=== PATIENT | female | born 1955 | race Caucasian/White ===

== ENCOUNTER 2016-03-31 10:30 | Outpatient (RCR) | payer BC ==
--- NOTE | 2016-03-19 15:20 | PT/OT/ST INITIAL EVALUATION ---
[facility], [facility]. PHYSICAL/OCCUPATIONAL THERAPY [address] [place], [place] [id number] PLAN OF CARE/ASSESSMENT FOR OUTPATIENT REHABILITATION (Complete for Initial Claims Only) 1. PATIENT'S NAME Racheal Gonzalez 2. ACC. No [id number] 3. REFERRING PHYSICIAN Dr. Jarvis Boateng 4. PRIMARY DX Right total knee arthroplasty 5. SECONDARY DX 6. ONSET DATE 03/10/2016 7. REFERRAL DATE 03/12/2016 8. SOC. DATE/TIME 03/15/2016 16:10 9. PRIOR LEVEL OF FUNCTION; PERTINENT HISTORY (Prior therapy results, reason for referral.) S: Prior to today's treatment, the patient did consent to therapy evaluation and treatment. The patient is a 60-year-old female with a history of chronic knee pain bilaterally. The patient did undergo right total knee arthroplasty on the 03/10/2016. The patient did have a several day hospital stay, in which she had physical therapy services, but now has returned home. Currently the patient has limited range of motion, postoperative pain in the right knee, as well as impaired gait and strength. Prior function: The patient is a retired trauma meat department manager. She does live in a house with 3 entry stairs, but does have to ascend and descend 15 steps to get to her bedroom. The patient was ambulating with the use of a cane prior to her surgery secondary to chronic knee pain issues bilaterally. Current function: The patient is currently ambulating with the use of a front-wheeled walker. She has made arrangements to sleep downstairs so she does not have to traverse her stairs at this time. Current pain level is 6/10 in the right knee and it is managed with taking [place]. The patient also has left knee pain related to meniscus issues, as well as joint deterioration and she rates the pain in the left knee as 3/10. Past medical history: Includes prior knee scope on the right knee as well as the left, carpal tunnel syndrome, lymph node removal in the neck. Past medical history also includes arthritis, diabetes, depression and high blood pressure. Medication list: [place] for pain, as well as Tylenol. The patient's goal for physical therapy is to be able to return to ambulating without an assistive device. 10. INITIAL ASSESSMENT/SAFETY PRECAUTIONS/MEDICAL COMPLICATIONS (Level of function at start of care. Be specific, use objective measures, list problems.) O: APPEARANCE AND OBSERVATION: Observation of the patient's right knee reveals mild postoperative swelling, no significant heat, redness, or edema noted around the knee joint or distal lower extremity. Observation of the patient's gait reveals the patient is able to complete step-through gait pattern with the use of her front-wheeled walker with good heel strike, but limited push off. RANGE OF MOTION/FLEXIBILITY: Left knee flexion actively in sitting is 127 degrees, right is 88 degrees. Left ankle dorsiflexion measured in supine is 10 degrees; right is lacking 12 degrees from neutral. Left knee extension is lacking 2 degrees from neutral. Flexion is 131 degrees. Right knee extension is lacking 15 degrees; left knee flexion is 88 degrees. STRENGTH: Right hip flexion 3/5, knee flexion 3+/5, knee extension 2/5, ankle dorsiflexion 5/5. Left hip flexion 5/5, knee flexion 5/5, extension 4+/5, ankle dorsiflexion 4/5. SPECIAL TESTS: The patient scored an 87.5% disability on the lower extremity functional index. TODAY'S TREATMENT: Today's treatment consisted of continuing her range of motion and strengthening exercises per total knee arthroplasty protocol. A vasopneumatic device was applied to the right knee following treatment to address pain and inflammation. The patient was instructed to continue these exercises at home to allow her to continue to improve her range of motion and strength. 11. INITIAL POC: (Specify procedures, modalities, short and terminologist goals) A: The patient presents to physical therapy 5 days postoperative right total knee arthroplasty. PROGNOSIS: This patient does have an excellent prognosis with regular therapy attendance and compliance with her home exercise program. The patient is expected to benefit from physical therapy services in order to improve right knee range of motion, strength, and allow her to return to ambulating without an assistive device. SHORT TERM GOALS: 1. The patient will demonstrate independence and report compliance with her home exercise program related to range of motion and strengthening exercises. 2. The patient will improve right knee flexion to be 100 degrees, extension to be lacking 5 degrees within 2 weeks' time. 3. The patient will have a minimum of 4/5 knee flexion and extension strength within 3 weeks. [facility] GOALS: 1. The patient will improve right knee flexion in both sitting and standing to be within 90% of the left. 2. The patient will demonstrate 5/5 right hip flexion, knee flexion, and knee extension strength. 3. The patient will decrease her lower extremity functional index disability level by a minimum of 20%. 4. The patient will demonstrate the ability to ambulate with a single-point cane with proper heel-toe gait pattern community distances. 5. The patient will demonstrate proper knee control when ascending and descending 15 steps. The diagnosis, prognosis, risks and expected outcomes were discussed with this patient and she is agreeable to the plan of care established today. P: Plan to see this patient 3 times a week for 4 weeks followed by 2 times a week for 2 weeks. Therapeutic interventions will include modalities as needed to address pain and inflammation, therapeutic exercise improving range of motion, strength, and stabilization, functional training, gait and balance training. The patient's home exercise program will be progressed as the patient tolerates. Thank you for the referral of this patient. 13. PHYSICIAN SIGNATURE ? ON FILE OR ENTER HERE: 15. DATE: I certify the need for these services furnished under this plan of care and if for partial hospitalization. 16. CERTIFICATION FROM THROUGH
[~2016-03-31 10:30] MED LIST: ASPI-860 PO; ATOR40TA2 PO; CHOL200018 PO; CYCL5TAB PO; DICL35CA PO; HCT25T PO; LISI5TAB14 PO; MAGN400T39 PO; METF-759 PO; METO-272 PO; MTP50T PO; MULT-955 PO; OMEP40CA3 PO; [UNRECOGNIZED DRUG - CODE] PO
== END 2016-05-21 09:22 | disposition home or self-care (01) ==
LOC: PT 10:30
PROVIDERS: ATTEND Orthopaedic Surgery
DX: Z96.651 Presence of right artificial knee joint (principal); Z47.1 Aftercare following joint replacement surgery